=== PATIENT | female | born 1990 | race Caucasian/White ===

== ENCOUNTER 2019-04-25 10:36 | Outpatient (RCR) | payer BC, SELFPAY ==
--- NOTE | ~2019-04-25 | US_ITS ---
EXAMINATION: US OB <=14 wk fetus w TV DATE: 04/25/2019 11:58 INDICATION: Threatened miscarriage. TECHNIQUE: Real-time transabdominal and transvaginal pelvic ultrasound was performed. COMPARISON: None. FINDINGS: TRANSABDOMINAL ULTRASOUND: The uterus measures 8.5 x 7.5 x 5.4 cm. TRANSVAGINAL ULTRASOUND: There is an intrauterine gestational sac. A yolk sac is identified. The fet al crown rump length measures 1.1 cm, which correlates with an estimated gestational age of 7 weeks a nd 2 day(s) (+/-) 5 day(s). heart motion is not identified with cine imaging. The right ovary m easures 2.8 x 2.0 x 1.7 cm. The left ovary measures 2.8 x 1.8 x 1.5 cm. There is no free fluid in the pelvis. IMPRESSION: 1. demise. Reviewed, dictated and finalized at location B. [employer]IC APPRENTICE IMPRESSION: 1. demise.
== END 2019-07-24 23:59 | disposition home or self-care (01) ==
LOC: ANHLAB 10:36
PROVIDERS: Visit Provider Obstetrics & Gynecology
DX: O20.0 Threatened abortion (principal); O26.851 Spotting complicating pregnancy, first trimester; Z3A.00 Weeks of gestation of pregnancy not specified
CPT/HCPCS: 36415; 76801; 76817; 84702

== ENCOUNTER 2019-08-20 00:21 | Day surgery (SDC) | payer BC, SELFPAY ==
[2019-08-19 14:21] VITALS: BMI 21.9
[2019-08-20] MEDS: LACTATED RINGERS 1,000 ML 30 ML IV CONT (08:45)
[2019-08-20 09:15] VITALS: BP 114/78; PULSE 78; RESP 16; TEMP 36.6; O2SAT 100
--- NOTE | 2019-08-20 09:18 | WPDANESEPPF ---
Anes - Initial Pre Proc Eval Procedure: Operation Date: 08/20/19 10:00 Proposed Procedures p Suction Dilation And Curettage - Heron Wing MD Date/Time: 08/20/19 09:18 Surgeon: Heron Wing MD Pre Op Diagnosis: Missed AB Patient Data Age: 29 Gender: F Height: 5 ft 7 in Weight: 63.5 kg Allergies Allergy/AdvReac Type Severity Reaction Status Date / Time No Known Allergies Allergy Verified 08/19/19 14:36 Home Medications Medication Instructions Recorded Confirmed Type vit-iron fum-folic ac 1 tablet PO DAILY 08/19/19 08/19/19 History [ Vitamin] Patient hx anesthesia problems: none Family hx anesthesia problems: none Anes - Eval Final PreProcedure Day of Procedure 08/20/19 09:18 Patient weight: normal Heart: regular rate and rhythm Lungs: clear to auscultation Airway: Mallampati scale class II Neurological: alert and oriented Last oral intake: >/= 8 hours ASA classification: II Emergent: no Anesthetic plan: proceed Anesthesia type and monitoring: general GIVS and standard monitoring Informed Consent: The patient's anesthetic plan and its attendant risks and benefits were discussed with the patient/family/POA. Questions were solicited and answers provided to the satisfaction of the patient/family/POA.
--- NOTE | 2019-08-20 09:31 | PM.HPGS ---
History of Present Illness History of Present Illness Consent: Risks, benefits, and alternatives have been discussed and questions answered. Patient agrees to proceed with procedure. Chief complaint: Missed AB Narrative: Beverly Smith is a 29 year old female A1 with current missed . Patient denies bleeding was follow from prior ultrasound and showed demise Meds Home Medications and Allergies Home Medications Medication Instructions Recorded Confirmed Type vit-iron fum-folic ac 1 tablet PO DAILY 08/19/19 08/20/19 History [ Vitamin] Allergies Allergy/AdvReac Type Severity Reaction Status Date / Time No Known Allergies Allergy Verified 08/19/19 14:36 Vital Signs Vital Signs - 24 hr 08/20/19 09:15 Temperature 36.6 C Pulse Rate 78 Respiratory Rate 16 Blood Pressure 114/78 Pulse Oximetry 100 Exam Const: General: no acute distress GI: GI Palp: Yes Soft to palpation Other: nontender : External Female Exam: normal external appearance Assessment and Plan Assessment and plan (1) Missed : Code(s): O02.1 - Missed Status: Acute Assessment and Plan: Scheduled for suction dilation and curettage. Risk and benefits were reviewed with patient in detail.
[2019-08-20] MEDS: KETOROLAC 30 MG/ML VIAL (*BKC) IV PUSH (10:03)
[2019-08-20 10:14] VITALS: BP 112/67; PULSE 70; RESP 16; TEMP 36.1; O2SAT 100
--- NOTE | 2019-08-20 10:16 | PM.OP ---
Procedure Note - Brief Procedure Note - Brief Date of procedure: 08/20/19 Pre-op diagnosis: Missed AB Post-op diagnosis: same Procedure performed: suction dilation and curettage Anesthesia: GLMA Surgeon: Heron Wing MD Estimated blood loss (mL): 30 Drains: No Packing: No Condition: stable Disposition: observation Findings: normal cervix approximate 10 week uterus
[2019-08-20 10:40] VITALS: BP 118/74; PULSE 72; RESP 16
[2019-08-20 11:10] VITALS: BP 104/68; PULSE 58; RESP 18
--- NOTE | 2019-08-21 08:19 | OP_ITS ---
DATE OF PROCEDURE: 08/20/2019 PREOPERATIVE DIAGNOSIS: Missed . POSTOPERATIVE DIAGNOSIS: Missed . PROCEDURE PERFORMED: Suction D and C. ANESTHESIA: Paracervical block with mild IV sedation. COMPLICATIONS: None. ESTIMATED BLOOD LOSS: 50 cc. DESCRIPTION OF PROCEDURE: The patient was taken to operating room with IV running, prepared and draped in the normal sterile fashion, placed in a dorsal lithotomy position. The bivalve speculum was placed in the vagina. Anterior lip of the cervix was grasped with a single-tooth tenaculum. Cervix was injected at the 2 and 10 o'clock position with 5 cc of lidocaine bilaterally. Uterus was sounded to 9 cm. The cervix was then serially dilated with Hegar dilators to a 9 and 8. Suction curette was then introduced into the uterine cavity. Suction device activated with 2 passes with contents removing. Sharp curettage was then performed in all 4 quadrants until gritty texture and then 2 passes with the suction curette was then performed again. Tenaculum was removed from tenaculum site. Hemostasis was assured and the patient was taken to recovery room. Yoana I MT: Marlene
== END 2019-08-20 11:18 | disposition home or self-care (01) ==
PROVIDERS: Visit Provider Obstetrics & Gynecology
PROC: (CPT 59820; principal; 2019-08-20 10:00)
DX: O02.1 Missed abortion (principal)
CPT/HCPCS: 59820; 36415; 85461; 88264; 88305; A9270; J1100; J1885; J2250; J2405; J2704; J3010; J7120

== ENCOUNTER 2019-12-10 16:29 | Outpatient (CLI) | payer BC, SELFPAY ==
--- NOTE | ~2019-12-10 | US_ITS ---
EXAMINATION: US OB <=14 wk fetus w TV DATE: 12/10/2019 17:16 INDICATION: First trimester dating TECHNIQUE: Real-time pelvic transabdominal and transvaginal ultrasound was performed. COMPARISON: None. FINDINGS: The uterus measures 12.7 x 6.1 x 6.6 cm. There is an intrauterine gestational sac. There i s a 1.7 x 1.0 x 0.4 cm hypoechoic area adjacent to the gestational sac. A yolk sac is identified. Fet al heart motion is identified measuring 148 beats per minute (bpm) by M-mode Doppler. The crown rump length measures 1.5 cm , which correlates with an estimated gestational age of 8 weeks and 0 da y(s) (+/-) 5 day(s). The right ovary measures 2.2 x 1.4 x 1.2 cm. The left ovary measures 2.6 x 1.9 x 1.6 cm. There is no free fluid in the pelvis. IMPRESSION: 1. Live intrauterine with an estimated gestational age of 8 weeks and 0 day(s) (+/-) 5 day( s) and an estimated delivery date of 07/21/2020. 2. Small subchorionic hematoma. Reviewed, dictated and finalized at location A. IMPRESSION: 1. Live intrauterine with an estimated gestational age of 8 weeks and 0 day(s) (+/-) 5 day(s) and an estimated delivery date of 07/21/2020. 2. Small subchorionic hematoma.
== END 2019-12-10 16:30 | disposition home or self-care (01) ==
PROVIDERS: Visit Provider Obstetrics & Gynecology
DX: O26.841 Uterine size-date discrepancy, first trimester (principal); Z3A.08 8 weeks gestation of pregnancy
CPT/HCPCS: 76801; 76817

== ENCOUNTER 2019-12-26 15:42 | Outpatient (CLI) | payer BC, SELFPAY ==
--- NOTE | ~2019-12-26 | US_ITS ---
EXAMINATION: US OB <= 14 weeks fetus DATE: 12/26/2019 16:17 INDICATION: Subchorionic hematoma. TECHNIQUE: Real-time pelvic ultrasound utilizing transabdominal probe was performed. The layla delarosa radiologist was not present for the study. COMPARISON: None. FINDINGS: The retroverted uterus measures 16.5 x 6.8 x 10.3 cm. There is an intrauterine gestational sac. A yo lk sac and pole are identified. The crown rump length measures 2.3 cm, which is exactly concord ant with previously estimated gestational age of 10 weeks and 2 days. heart motion is identifie d measuring 159 beats per minute (bpm) by M-mode Doppler. The left and right ovaries are not visualiz ed. There is no free fluid in the pelvis. No evident subchorionic hematoma. IMPRESSION: 1. Single living fetus with heart rate of 159 bpm. 2. Gestational age by ultrasound of 10 weeks 2 day(s) +/- 5 day(s) with ultrasound estimated date of delivery ([facility]) of 07/21/2020. 3. Interval resolution of prior small subchorionic hematoma. Reviewed, dictated and finalized at location B. IMPRESSION: 1. Single living fetus with heart rate of 159 bpm. 2. Gestational age by ultrasound of 10 weeks 2 day(s) +/- 5 day(s) with ultras ound estimated date of delivery ([facility]) of 07/21/2020. 3. Interval resolution of prior small subchorionic hematoma.
== END 2019-12-26 15:43 | disposition home or self-care (01) ==
PROVIDERS: Visit Provider Obstetrics & Gynecology
DX: O36.8910 Maternal care for other specified fetal problems, first trimester, not applicable or unspecified (principal); Z3A.10 10 weeks gestation of pregnancy
CPT/HCPCS: 76801